=== PATIENT | female | born 1960 | race Caucasian/White ===

== ENCOUNTER 2020-04-23 00:25 | Outpatient (CLI) | payer BC, SELFPAY ==
[2020-04-23 17:33] LABS: SARS-CoV-2 RNA PCR Negative
== END 2020-04-23 00:26 | disposition home or self-care (01) ==
LOC: ANHCOVIDDT 00:25
PROVIDERS: PCP Emergency Medicine; Visit Provider Internal Medicine Gastroenterology
DX: Z01.812 Encounter for preprocedural laboratory examination (principal); Z20.828 Contact with and (suspected) exposure to other viral communicable diseases
CPT/HCPCS: 87635; C9803; U0003

== ENCOUNTER 2020-04-25 01:24 | Day surgery (SDC) | payer BC, SELFPAY ==
[2020-04-16 10:24] VITALS: BMI 39.6
--- NOTE | 2020-04-25 07:24 | WPDANESEPPF ---
Anes - Initial Pre Proc Eval Procedure: Operation Date: 04/25/20 08:30 Proposed Procedures p Screening Colonoscopy - Nuno Olguin MD Date/Time: 04/25/20 07:24 Surgeon: Nuno Olguin MD Pre Op Diagnosis: neoplasm Screening and family hx colon polyp Patient Data Age: 59 Gender: F Height: 5 ft 7 in Weight: 115 kg Allergies Allergy/AdvReac Type Severity Reaction Status Date / Time Penicillins Allergy Unknown Rash Verified 04/16/20 10:21 Home Medications Medication Instructions Recorded Confirmed Type biotin 1 mg PO DAILY 04/16/20 04/16/20 History cholecalciferol (vitamin D3) 10 mcg PO DAILY 04/16/20 04/16/20 History [Vitamin D3] cyanocobalamin (vitamin B-12) 1,000 mcg PO DAILY 04/16/20 04/16/20 History [Vitamin B-12] estradiol 1 mg PO DAILY 04/16/20 04/16/20 History levothyroxine 150 mcg PO DAILY 04/16/20 04/16/20 History medroxyprogesterone 5 mg PO DAILY 04/16/20 04/16/20 History Patient hx anesthesia problems: none Family hx anesthesia problems: none PMFSH Past Medical History Medical History (Updated 04/25/20 @ 07:24 by Raghav Carranza MD) Hypothyroid Family History Family History Sibling Family history of diabetes mellitus in first degree relative Other Cerebrovascular accident Diabetes mellitus Family history of cardiovascular disease Hypertension Social History Social History Smoking status: Never smoker Alcohol intake: current Anes - Eval Final PreProcedure Day of Procedure 04/25/20 07:24 Patient weight: morbidly obese Heart: regular rate and rhythm Lungs: clear to auscultation Airway: Mallampati scale class II Neurological: alert and oriented Last oral intake: >/= 8 hours ASA classification: III Emergent: no Anesthetic plan: proceed Anesthesia type and monitoring: general GIVS and standard monitoring Informed Consent: The patient's anesthetic plan and its attendant risks and benefits were discussed with the patient/family/POA. Questions were solicited and answers provided to the satisfaction of the patient/family/POA.
[2020-04-25 07:41] VITALS: BP 150/102; PULSE 80; RESP 18; TEMP 36.3; O2SAT 100; BMI 38.7
[2020-04-25] MEDS: LACTATED RINGERS 1,000 ML 150 ML IV CONT (07:49)
[2020-04-25 08:00] VITALS: BP 141/76; PULSE 72
--- NOTE | 2020-04-25 08:01 | WPDGICN ---
Assessment and Plan Assessment and plan (1) Family history of colonic polyps: Code(s): Z83.71 - Family history of colonic polyps Status: Acute Assessment and Plan: Patient presents for colonoscopy for screening. She does have a risk factor that her mother had colon polyps. Further recommendations will be given after colonoscopy. GI Consult Note Consult date/time: 04/25/20 08:01 HPI: Catia Franco is a 59 year old female Seen in evaluation at the request of Dr. Abebe Brooke. Patient presents for neoplasia screening. Her current weight appetite bowel movements are normal. She denies abdominal pain. She denies any blood in her stools. Family history is significant her mother had colon polyps. Her brother had unspecified metastatic cancer in his early 60s. Plan is for screening colonoscopy to be performed. High-fiber diet ad Review of Systems Review of Systems: All systems reviewed & are unremarkable except as noted in HPI and below PMFSH Past Medical History Medical History Hypothyroid Family History Family History Sibling Family history of diabetes mellitus in first degree relative Other Cerebrovascular accident Diabetes mellitus Family history of cardiovascular disease Hypertension Social History Social History Smoking status: Never smoker Alcohol intake: current Meds Home Medications and Allergies Home Medications Medication Instructions Recorded Confirmed Type biotin 1 mg PO DAILY 04/16/20 04/25/20 History cholecalciferol (vitamin D3) 10 mcg PO DAILY 04/16/20 04/25/20 History [Vitamin D3] cyanocobalamin (vitamin B-12) 1,000 mcg PO DAILY 04/16/20 04/25/20 History [Vitamin B-12] estradiol 1 mg PO DAILY 04/16/20 04/25/20 History levothyroxine 150 mcg PO DAILY 04/16/20 04/25/20 History medroxyprogesterone 5 mg PO DAILY 04/16/20 04/25/20 History Allergies Allergy/AdvReac Type Severity Reaction Status Date / Time Penicillins Allergy Unknown Rash Verified 04/25/20 07:40 Vital Signs Vital Signs - 24 hr 04/25/20 07:41 04/25/20 08:00 Temperature 36.3 C L Pulse Rate 80 72 Respiratory Rate 18 Blood Pressure 150/102 H 141/76 H Pulse Oximetry 100 Exam Narrative: Exam Narrative: Physical exam reveals patient to be alert. Vital signs are stable. HEENT exam unremarkable. Lungs are clear to auscultation and percussion. Heart is without murmur or extra sounds. Abdominal exam bowel sounds are present soft nontender with no hepatosplenomegaly. Digital external rectal exam is normal.
[2020-04-25 09:03] VITALS: BP 121/72; PULSE 74; RESP 18; O2SAT 100
[2020-04-25 09:13] VITALS: BP 132/76; PULSE 68; RESP 15; O2SAT 100
[2020-04-25 09:23] VITALS: BP 131/95; PULSE 70; RESP 17; O2SAT 100
== END 2020-04-25 09:38 | disposition home or self-care (01) ==
PROVIDERS: PCP Emergency Medicine; Visit Provider Internal Medicine Gastroenterology
PROC: 0DJD8ZZ Inspection of Lower Intestinal Tract, Via Natural or Artificial Opening Endoscopic (ICD-10-PCS; CPT 45378; principal; 2020-04-25 08:30)
DX: Z12.11 Encounter for screening for malignant neoplasm of colon (principal); K57.30 Diverticulosis of large intestine without perforation or abscess without bleeding; K64.8 Other hemorrhoids; Z83.71 Family history of colonic polyps; E03.9 Hypothyroidism, unspecified; E66.01 Morbid (severe) obesity due to excess calories; Z68.38 Body mass index [BMI] 38.0-38.9, adult
CPT/HCPCS: 45378; J2704; J7120

== ENCOUNTER 2020-12-19 15:00 | Outpatient (CLI) | payer BC, SELFPAY ==
--- NOTE | ~2020-12-19 | MM_ITS ---
EXAMINATION: MM screening [facility] w deangelo HISTORY: Screening mammogram TECHNIQUE: Craniocaudal and mediolateral oblique 3-D tomosynthesis images were obtained and synthetic 2-D images were generated. CAD analysis was submitted and interpreted. COMPARISON: 06/01/2018, 02/23/2016, 09/12/2013 BREAST PARENCHYMAL COMPOSITION: The breasts are heterogeneously dense, which may obscure small masses . FINDINGS: There is no evidence of suspicious mass, calcification, or architectural distortion to sugg est malignancy in either breast. There has been no suspicious interval change. IMPRESSION: 1. No mammographic evidence of malignancy. 2. Recommend routine screening mammography in one year. BI-RADS Category 1: Negative Reviewed, dictated and finalized at location A. CAL TRANSCRIPTION EDITOR
== END 2020-12-19 15:01 | disposition home or self-care (01) ==
LOC: ANHIMG 15:04
PROVIDERS: PCP Emergency Medicine; Visit Provider Obstetrics & Gynecology Gynecology
DX: Z12.31 Encounter for screening mammogram for malignant neoplasm of breast (principal)
CPT/HCPCS: 77063; 77067

== ENCOUNTER 2021-01-26 15:06 | Outpatient (CLI) | payer BC, SELFPAY ==
--- NOTE | ~2021-01-26 | DEXA_ITS ---
Bone Density Report Name: Catia Franco Age: 60 Sex: Female Ethnicity: White Date of : 1960 Indication: postmenopausal; parental hip fracture; inflammatory bowel disease; Referring Provider: ALICE MERRILL Study: Bone densitometry was performed. Exam Date: January 26, 2021 Accession number: [id number] Bone Density: Region BMD T-score Z-score Classification AP Spine (L1-L4) 0.914 -1.2 0.1 Osteopenia Femoral Neck (Left) 0.760 -0.8 0.4 Normal Total Hip (Left) 1.016 0.6 1.5 Normal Total Hip Bilateral Avg 0.974 0.3 1.2 Normal Femoral Neck (Right) 0.753 -0.9 0.4 Normal Total Hip (Right) 0.930 -0.1 0.8 Normal World Health Organization criteria for BMD impression classify patients as: Normal (T-score at or above -1.0), Osteopenia (T-score between -1.0 and -2.5), or Osteoporosis (T-score at or below -2.5). 10-year Fracture Risk(1): Major Osteoporotic Fracture 12% Hip Fracture 0.3% Reported Risk Factors: [place] (), Neck BMD=0.753, BMI=40.4, parental fracture (1) FRAX(R) Version 3.08. Fracture probability calculated for an untreated patient. Fracture probability may be lower if the patient has received treatment. Clinical Information Provided by Patient: Parent has had a hip fracture Has used the following medications: HRT (i.e. estrogen/hormone therapy), Vitamin D Has the following medical conditions: Inflammatory bowel diseases Patient maximum height was 67 Menopause Age: 59 No regular weight bearing exercise Does not regularly consume dairy products Drinks caffeinated beverages Onset of menses at age 13 Number of children 2 Impression: The patient has low bone mass, based on the Total Spine T-score. The patient has an estimated ten-year risk of hip fracture of 0.3% and an estimated ten-year risk of major fracture of 12%, based on the WHO FRAX algorithm. The patient has risk factors, including: parental hip fracture. Discussion: BONE DENSITY IS LOW AT ONE OR MORE SKELETAL SITES. This patient's lowest T-score is low at one or more skeletal sites. It meets the World Health Organization's (WHO) criteria for ?low bone mass? (T-score between -1.0 and -2.5). The patient's 10-year risk of fracture as calculated by FRAX is less than the threshold where pharmacological therapy is recommended by the National Osteoporosis Foundation (NOF). However, all treatment decisions require clinical judgment and consideration of individual patient factors, including patient preferences, comorbidities, previous drug use, risk factors not captured in the FRAX model (e.g., frailty, falls, vitamin D deficiency, increased bone turnover, interval significant decline in bone density) and possible under or overestimation of fracture risk by FRAX. The patient should follow a healthful lifestyle (good nutrition wi
== END 2021-01-26 15:07 | disposition home or self-care (01) ==
LOC: ANHIMG 15:07
PROVIDERS: PCP Emergency Medicine; Visit Provider Obstetrics & Gynecology Gynecology
DX: Z78.0 Asymptomatic menopausal state (principal); M85.88 Other specified disorders of bone density and structure, other site
CPT/HCPCS: 77080

== ENCOUNTER 2024-08-07 11:49 | Outpatient (CLI) | payer BC, SELFPAY ==
--- NOTE | ~2024-08-07 | MM_ITS ---
EXAMINATION: MM screening [facility] BI w deangelo HISTORY: Screening TECHNIQUE: Craniocaudal and mediolateral oblique 3-D tomosynthesis images were obtained and synthetic 2-D images were generated. CAD analysis was submitted and interpreted. COMPARISON: Comparison to multiple prior studies sequentially, with oldest reviewed study dated 02/22. BREAST PARENCHYMAL COMPOSITION: Not dense: There are scattered areas of fibroglandular density. FINDINGS: There is no evidence of suspicious mass, calcification, or architectural distortion to sugg est malignancy in either breast. There has been no suspicious interval change. IMPRESSION: 1. No mammographic evidence of malignancy. 2. Recommend routine screening mammography in one year. BI-RADS Category 1: Negative Reviewed, dictated and finalized at location B.
--- NOTE | ~2024-08-07 | DEXA_ITS ---
Bone Density Report Name: ADELAIDE ALVARENGA Age: 63 Sex: Female Ethnicity: White Date of : 1960 Indication: screening for osteoporosis; inflammatory bowel disease; Referring Provider: Ada Key Study: Bone densitometry was performed. Exam Date: August 07, 2024 Accession number: [id number] Bone Density: Region BMD T-score Z-score Classification AP Spine(L1-L4) 1.024 -0.2 1.4 Normal Femoral Neck (Left) 0.764 -0.8 0.6 Normal Total Hip (Left) 1.018 0.6 1.7 Normal Femoral Neck (Right) 0.734 -1.0 0.4 Normal Total Hip (Right) 0.890 -0.4 0.7 Normal Femoral Neck Mean 0.749 -0.9 0.5 Normal Total Hip Mean 0.954 0.1 1.2 Normal World Health Organization criteria for BMD impression classify patients as: Normal (T-score at or above -1.0), Osteopenia (T-score between -1.0 and -2.5), or Osteoporosis (T-score at or below -2.5). 10-year Fracture Risk: FRAX not reported because: Premenopausal woman All T-scores for Spine Total, Hip Total, Femoral Neck at or above -1.0 Clinical Information Provided by Patient: Has used the following medications: HRT (i.e. estrogen/hormone therapy), Vitamin D, Calcium Has the following medical conditions: Inflammatory bowel diseases, Hypothyroidism Patient maximum height was 67.5 Drinks caffeinated beverages Onset of menses at age 12 Premenopausal Number of children 2 Missed period for more than 6 months in a row Impression: The patient's bone mass is within expected range for age, gender and ethnicity. Discussion: BONE DENSITY IS WITHIN EXPECTED LIMITS FOR AGE, SEX AND RACE. Bone density is within expected limits for age, sex and race at all sites measured. The patient should follow a healthful lifestyle (good nutrition with adequate calcium and vitamin D, and appropriate weight-bearing exercise). Follow-Up: Consider repeating this study in 5 years or sooner if there is some new clinical indication. Reported by: KIRTI on 08/07/2024 4:11:00 PM. Reviewed, dictated and finalized at location ASally JONES
== END 2024-08-07 11:50 | disposition home or self-care (01) ==
LOC: CHSIMG 11:57
PROVIDERS: PCP Family Medicine; Visit Provider Obstetrics & Gynecology Gynecology
DX: Z12.31 Encounter for screening mammogram for malignant neoplasm of breast (principal); Z78.0 Asymptomatic menopausal state
CPT/HCPCS: 77063; 77067; 77080

== ENCOUNTER 2025-02-11 01:42 | Day surgery (SDC) | payer BC, SELFPAY ==
[2025-01-31 16:17] VITALS: BMI 38.0
--- NOTE | 2025-02-08 19:04 | P.PNAN_ITS ---
Anes - Eval Pre Procedure Procedure: Operation Date: 02/11/25 08:00 Proposed Procedures p Colonoscopy - Brennan Florence MD Date/Time: 02/08/25 19:04 Pre Op Diagnosis: family hx of neoplasm polyps Patient Data Age: 64 Gender: F Height: 1.7 m Weight: 110 kg Allergies Allergy/AdvReac Type Severity Reaction Status Date / Time Penicillins Allergy Unknown Rash Verified 01/31/25 16:12 ADHESIVE BANDAIDS Allergy Intermediate RASH Uncoded 01/31/25 16:12 Home Medications ?Medication ?Instructions ?Recorded ?Confirmed ?Type biotin 1 mg capsule 1 mg PO DAILY 04/16/20 01/31/25 History cholecalciferol (vitamin D3) 10 10 mcg PO DAILY 04/16/20 01/31/25 History mcg (400 unit) tablet (Vitamin D3) cyanocobalamin (vitamin B-12) 1,000 mcg PO DAILY 04/16/20 01/31/25 History 1,000 mcg tablet (Vitamin B-12) estradiol 1 mg tablet 1 mg PO DAILY 04/16/20 01/31/25 History levothyroxine 150 mcg tablet 150 mcg PO DAILY 04/16/20 01/31/25 History WOMANS VITAMIN 1 tablet PO DAILY 01/31/25 01/31/25 History ondansetron HCl 4 mg tablet 4 mg PO Q6H PRN nausea and 01/31/25 Rx vomiting #4 tabs progesterone micronized 200 mg 200 mg PO DAILY 01/31/25 01/31/25 History capsule Patient hx anesthesia problems: none Family hx anesthesia problems: none Results Review: All pre-operative results and documents have been reviewed as part of the pre- operative evaluation. [facility] Past Medical History Medical History (Updated 02/08/25 @ 19:11 by Windy Mai CRNA) Obesity Hypothyroid Family History Family History Sibling Family history of diabetes mellitus in first degree relative Other Cerebrovascular accident Diabetes mellitus Family history of cardiovascular disease Hypertension Social History Social History Smoking status: Never smoker Alcohol intake: current Substance use: never Substance use type: does not use Living arrangements: with family Spiritual care concerns: No Exam Day of Procedure 02/08/25 19:04
--- OUTSIDE RECORDS SUMMARY | 2025-02-11 01:44 | XMS_ITS | Encounter Summary ---
Author Organization [facility] Address [address] [place] [id number] Care Team Providers Care Flower Shop Laborer/Designer Name Role Phone Ada Key MD Unavailable [phone] Nuno Olguin MD Unavailable [phone] Khalida Egan MD Primary Care Provider [phone] Reason for Visit * Reason Onset Date Comments Lab Results 06/16/2022 Encounter Details Date Type Department Care Team (Late st Contact Info) Description 06/16/2022 Deenty Message Enc [facility] Family & Internal Medicine [address] [address] [facility] Provider Results Social History Tobacco Use Types Packs/Day Years Used Date Smoking Tobacco: Never Smokeless Tobacco: Never Alcohol Use Standard Drinks/Week Comments Yes 0 (1 standard drink = 0.6 oz pur e alcohol) social 1drink/6 months AUDIT-C Answer Date Recorded Q1: How often do you have a drink containing alc ohol? Monthly or less 03/26/2020 Average Number of Drinks Not on file 020 Frequency of Binge Drinking Not on file 03/14 PHQ-2 Answer Date Recorded PHQ-2 Score - If the patient scores above 3, please move on to questions 3-9 0 05/10/2022 Education Answer Date Recorded What is the highest level of school you have completed or the highest degree you have received? High school graduate 12/22/2018 Comments No Sex and Gender Information Value Date Recorded Sex Assigned at Female 03/26/2020 3:08 PM CDT Legal Sex Female 9:25 PM CDT Gender Identity Female 03/26/2020 3:08 PM CDT Sexual Orientation Straight 03/26/2020 3: 08 PM CDT Occupation Industry Job Start Date Job End Date Not on file Not on file Not on file Not on file documented as of this encounter Functional Status * RETIRED Are you deaf or do you have serious difficulty hearing Answer Date of Assessment Author Status No 11/21/2021 11:09 AM CIS COORDINATOR Acti ve * RETIRED Are you blind or do you have serious difficulty seeing, even when wearing glasses? Answer Date of Assessment Author Status No 11/21/2021 11:09 AM CIS COORDINATOR Acti ve * Do you have serious difficulty walking or climbing stairs? Answer Date of Assessment Author Status No 11/21/2021 11:09 AM Rosie Evangelista R N Active * Do you have difficulty dressing or bathing? Answer Date of Assessment Author Status No 11/21/2021 11:09 AM Rosie Evangelista R N Active * Because of a physical, mental, or emotional condition, do you have difficulty doing errands alone such as visiting a doctor's office or shopping? Answer Date of Assessment Author Status No 11/21/2021 11:09 AM Rosie Evangelista R N Active documented as of this encounter Mental Status * Because of a physical, mental, or emotional condition, do you have serious difficulty concentrating, remembering, or making decisions? Answer Entry Date Author Status No 11/21/2021 11:09 AM Rosie Evangelista R N Active documented in this encounter Progress Notes * Sho Garcia RN - 06/21/2022 11:22 AM CDT Noted. * Faiza Chavis - 06/16/2022 2:48 PM CDT Pt returned your call I read her your note v/u documented in this encounter Plan of Treatment Upcoming Encounters Date Type Department Care Team (Late st Contact Info) Description 02/27/2025 3:20 PM CDT Office Visit [facility] Family & Internal Medicine - [place] [address] [place] [address] [place] [id number] [facility]. [address] [place] [id number] documented as of this encounter Goals Goal Patient Goal Type Associated Problems Recent Progress Patient-Stated? Author Health - patient able to perform ADLs independently General Piedad Almeida RN documented as of this encounter Visit Diagnoses Not on filedocumented in this encounter Additional Health Concerns Infection Onset Date Last Indicated Resolved Time COVID-19 Rule Out 11/22/2023 11/22/2023 11/22/2023 11:17 AM CIS COORDINATOR COVID-19 Rule Out 06/28/2024 06/28/2024 06/28/2024 11:11 AM CDT COVID-19 Confirmed 06/28/2024 06/28/2024 12:32 AM CDT documented as of this encounter Care Teams Flower Shop Laborer/Designer Relationship Specialty [place] [id number] [facility]. [address] [place] [id number] PCP - General FAMILY PRACTICE 05/10/22 Ada Key MD [address]22 [facility] [address] [place] [address] Consulting Physician OBGYN 03/23/21 Nuno Olguin MD 2022 [facility] [address] [place] [id number] Consulting Physician GASTROENTEROLOGY 03/23/21 documented as of this encounter
--- OUTSIDE RECORDS SUMMARY | 2025-02-11 01:44 | XMS_ITS | Clinical Summary ---
Author Organization [facility] Address [address] [place] [address] Care Team Providers Care Inspector Rough Castings Name Role Phone Ada Key MD Unavailable [phone] Nuno Olguin MD Unavailable [phone] Khalida Egan MD Primary Care Provider [phone] Allergies Active Allergy Reactions Criticality Noted Date Comments Penicillins GI Upset,Diarrhea 07/29/2015 Tape Rash Low 08/23/2017 Medications estradiol 1 MG tablet Take 1 tablet (1 mg total) by mouth daily. 7 Active Multiple Vitamins-Flexboard Operator als (MULTIVITAMIN ADULT, MINERALS, OR) Take 1 capsule by mouth daily. Active vitamin D3, cholecalcifero l, (VITAMIN D) 1000 UNIT Tab tabletIndicati ons:Vitamin D deficiency Take 1 tablet (1,000 Units total) by mouth daily. 90 tablet 2 Active medroxyPROGEST ERone (PROVERA) 5 MG tablet Take 1 tablet (5 mg total) by mouth daily. 3 Active levothyroxine (SYNTHROID) 150 MCG tabletIndicati ons:Hypothyroi dism take 1 tablet by mouth every morning. 90 tablet 1 4 Active zoster vaccine (SHINGRIX) (SHINGRIX) injectionIndic ations:Need for shingles vaccine Need 2 doses 2 -6 months apart 1 each 1 4 Active Additional Information Patient not taking.Reported on 01/02/2025 progesterone (PROMETRIUM) 100 MG capsule Take 1 capsule (100 mg total) by mouth nightly at bedtime. 4 Active meclizine 12.5 MG tabletIndicati ons:Dizziness Take 1 tablet (12.5 mg total) by mouth 3 (three) times daily as needed. 30 tablet 9 019 Discontinu ed( (Clinician Removed from Med list)) doxycycline hyclate (VIBRAMYCIN) 100 MG capsuleIndicat ions:Sore throat,Bronchi tis Take 1 capsule (100 mg total) by mouth 2 (two) times daily for 10 days. 20 capsule 5 025 Active Problems Problem Noted Date Diagnosed Date Hx of diverticulitis of colon 04/26/2024 Stress incontinence 04/26/2024 White coat syndrome without hypertension 023 Upper respiratory tract infection, unspecified t ype 02/03/2023 Sore throat 02/03/2023 Pneumonia 11/19/2021 Primary hypertension 12/21/2017 Assessment & Plan (03/30/2019 9:39 AM CDT): Patient with a history of mild hypertension, based on recordings in our office over the past 3 years, with a high in the 130s systolically. Currently she is within target range, not on any medications. We will continue to monitor, but no medications are indicated at this time. She was previously on clonidine but that was more for an anti-anxiety effect. Obesity (BMI 30-39.9) 04/22/2017 Overview (12/22/2018): Transitioned From: BMI 39.0-39.9,adult Assessment & Plan (03/30/2019 9:42 AM CDT): Encouraged continued healthy dietary selections, as well as daily exercise. Pure hypertriglyceridemia 04/22/2017 Assessment & Plan (03/30/2019 9:40 AM CDT): Single previous lipid panel obtained in 2014, with mildly elevated LDL and triglycerides. Repeat today, as patient is fasting. No medications at this time, and if unchanged from previous, likely would recommend continued dietary therapy only. Medication management 02/06/2016 Overview (12/22/2018): Transitioned From: intermodal customer service use of drug Assessment & Plan (03/30/2019 9:42 AM CDT): Checking routine labs today (see orders) for ongoing medication monitoring. Acquired hypothyroidism 07/29/2015 Assessment & Plan (03/30/2019 9:41 AM CDT): Check TSH today and adjust medication as indicated. Renew for the next year. Resolved Problems Problem Noted Date Diagnosed Date Resolved Date Longitudinal nail ridge 08/07/201803/14 Bipolar disorder ([facility]) 12/30/2017 03/26/2020 Assessment & Plan (03/30/2019 9:42 AM CDT): Stable, continues to follow with Dr. Martinez. No treatment change. . Generalized anxiety disorder 12/21/2017 03/23/2021 Assessment & Plan (03/30/2019 9:43 AM CDT): Stable, management per Dr. Martinez's office. Hot flash, menopausal 07/29/20152020 Encounters Date Type Department Care Team Description 01/02/2025 11:20 AM CARDIAC REHAB NURSE Office Visit [facility] Family & Internal Medicine [address] [address] Jaqui Conway PA Cough (Runny nose, sorethroat-x 5 orsn-cmqagovlmi-dycqa nasal drainage-left ear hurting) 01/02/2025 Travel from Last 3 Months Immunizations Name Administration Dates Next Due Influenza Adult (Generic) 09/12/2017 Family History Medical History Relation Comments Cancer Brother Stage 4 Hypertension Father Heart Mother Hypertension Mother polyps Mother Relation Status Comments Brother Father Mother Alive Social History Tobacco Use Types Packs/Day Years Used Date Smoking Tobacco: Never Passive Smoke Exposure: Never Smokeless Tobacco: Never Tobacco Cessation:Counseling Given: No Alcohol Use Standard Drinks/Week Comments Yes 0 (1 standard drink = 0.6 oz pur e alcohol) social 1drink/6 months AUDIT-C Answer Date Recorded Q1: How often do you have a drink containing alc ohol? Monthly or less 03/26/2020 Average Number of Drinks Not on file 020 Frequency of Binge Drinking Not on file 03/14 PHQ-2 Answer Date Recorded Patient Health Questionnaire-2 Score 0 02/29/2024 Education Answer Date Recorded What is the [...] file Not on file Not on file Last Filed Vital Signs Vital Sign Reading Time Taken Comments Blood Pressure 148/80 01/02/2025 11:47 AM CARDIAC REHAB NURSE taken manually Pulse 74 01/02/2025 11:44 AM CARDIAC REHAB NURSE Temperature 37 C (98.6 F) 01/02/2025 11:44 AM CARDIAC REHAB NURSE Respiratory Rate 20 01/02/2025 11:4 4 AM CARDIAC REHAB NURSE Oxygen Saturation 99% 01/02/2025 11: 44 AM CARDIAC REHAB NURSE Inhaled Oxygen Concentration - - Weight 111.8 kg (246 lb 6.4 oz) 01/02/2025 11:44 AM CARDIAC REHAB NURSE Height 170.2 cm (5' 7 ) 01/02/2025 11:4 4 AM CARDIAC REHAB NURSE Body Mass Index 38.59 01/02/2025 11:44 AM CARDIAC REHAB NURSE Plan of Treatment Upcoming Encounters Date Type Department Care Team (Late st Contact Info) Description 02/27/2025 3:20 PM CDT Office Visit [facility] Family & Internal Medicine [facility] [address] [place] [address] Khalida [place] [id number] [place] [address]. [address] [place] [address] Health Maintenance Due Date Last Done Comments Cervical Cancer Screening Pa p Smear (Age 30 to 64) Every 3 Years 1961 Hepatitis C 1979 DTaP, Tdap and Td Vaccines ( 1 - Tdap) 1980 Cervical Cancer Screening Pa p with HPV Testing (Age 30 to 64) Every 5 Years 1991 Zoster Vaccines (1 of 2) 2011 Annual Physical 03/23/2022 03/23/2021 COVID-19 Vaccine (1 - 2023-2 5 season) 2024 PHQ-2 (Physician Quechan) 11/14/2024 02/29/2024 Mammogram Screening 08/07/2026 08/07/2024, 06/01/2018 Cervical Cancer Screening with HPV 08/19/2026 Postponed from 12/20 (Going to Outside Clinic) Colorectal Cancer Screening Colonoscopy (10 Years) 04/25/2030 04/25/2020 RSV Immunization or 60+ Years (1 - 1-dose 75+ series) 2036 Meningococcal B Vaccine Aged Out No l onger eligible based on patient's age to complete this topic Meningococcal Vaccine Aged Out No bo libby eligible based on patient's age to complete this topic Pneumococcal Vaccine: Pediatrics (0 to 5 Years) and At-Risk Patients (6 to 64 Years) Aged Out No longer eligible b ased on patient's age to complete this topic RSV Immunizations Under 20 Months Aged Out No longer eligible b ased on patient's age to complete this topic Goals Goal Patient Goal Type Associated Problems Recent Progress Patient-Stated? Author Health - patient able to perform ADLs independently General No Piedad Cantu dining chair seat cushion trimmer Procedure Name Priority Date/Time Associated Diagnosis Comments CULTURE STREP A Routine 01/02/2025 12:01 PM CARDIAC REHAB NURSE Sore throat STREP A RAPID Routine 01/02/2025 Sore throat MAMMOGRAM GENERIC (SCAN ORDER) 08/07/2024 COLONOSCOPY GENERIC (SCAN ORDER) 04/25/2020 from Last 3 Months or Most Recently Relevant to Health Maintenance Results * CULTURE STREP A (01/02/2025 12:01 PM CARDIAC REHAB NURSE) THROAT CULTURE GROUP A STREP [facility] [place] Comment: CULTURE, THROAT, SPECIAL W/GRP A STREP SUSCEPT. Micro Number: [id number] Test Status: Final Specimen Source: Not given Specimen Quality: Adequate Result: No oropharyngeal pathogens recovered. STRUCTURE OF ANTERIOR PORTION OF NECK / Unknown 01/02/2025 12:01 PM CARDIAC REHAB NURSE 01/03/2025 12:52 AM CARDIAC REHAB NURSE Narrative Resulting Agency Comment Performing Organization Information: Site ID: Name: [facility] Address: [address] [place] [address] Director: Colleen Jimenez Jaqui EM MICROBIOLOGY - GENERAL ORDER [place] Final Result [facility] [address] [address], * STREP A RAPID (01/02/2025) RAPID STREP TEST NEGATIVE NEGATIVE [id number], [place] Internal Control: VALID VALID [id number], [place] STRUCTURE OF ANTERIOR PORTION OF NECK / Unknown 01/02/2025 Jaqui EM MICROBIOLOGY - GENERAL ORDER [place] Final Result Performing Organization Address [facility] Co de Phone Number [phone] [address] [place] [address], [place] [phone] * MAMMOGRAM GENERIC (SCAN ORDER) (08/07/2024) Anatomical Region Laterality Modality Other 08/07/2024 [facility] Scanned SCANNING Final Resu lt * COLONOSCOPY GENERIC (04/25/2020) 04/25/2020 Narrative 04/25/2020 Ordered by an unspecified provider. us Documents Scanned SCANNING Final Result from Last 3 Months or Most Recently Relevant to Health Maintenance Insurance [facility] Advance Directives * Full Code (Latest Code Status on File) Date Activated Date Inactivated Comments 11/20/2021 10:37 AM 11/21/2021 4:06 PM Care Teams Inspector Rough Castings Relationship Specialty [place] [address] [facility] [address] [place] [address] PCP - General FAMILY PRACTICE 05/10/22 Ada Key MD [address] [facility] [address] [place] [address] Consulting Physician OBGYN 03/23/21 Nuno Olguin MD [address] [facility] [address] [place] [address] Consulting Physician GASTROENTEROLOGY 03/23/21
--- OUTSIDE RECORDS SUMMARY | 2025-02-11 01:44 | XMS_ITS | Encounter Summary ---
Author Organization [facility] Address [address] [place] [address] Care Team Providers Care Log Turner Name Role Phone Ada Key MD Unavailable [phone] Nuno Olguin MD Unavailable [phone] Khalida Egan MD Primary Care Provider [phone] Encounter Details Date Type Department Care Team (Late st Contact Info) Description 10/21/2022 [employer] [facility] Message Enc [facility] Family & Internal Medicine [address] [address] [facility] Provider results Social History Tobacco Use Types Packs/Day Years [...] file Not on file Not on file COVID-19 Exposure Response Date Recorded In the last 10 days, have yo u been in contact with someone who was confirmed or suspected to have Coronavirus/COVID-19? No / Unsure 10/19/2022 8:56 AM BI TRI OPERATOR documented as of this encounter Functional Status * RETIRED Are you deaf or do you have serious difficulty hearing Answer Date of Assessment Author Status No 11/21/2021 11:09 AM BI TRI OPERATOR Acti ve * RETIRED Are you blind or do you have serious difficulty seeing, even when wearing glasses? Answer Date of Assessment Author Status No 11/21/2021 11:09 AM BI TRI OPERATOR Acti ve * Do you have serious difficulty walking or climbing stairs? Answer Date of Assessment Author Status No 11/21/2021 11:09 AM BI TRI OPERATOR Rosie Joyce R N Active * Do you have difficulty dressing or bathing? Answer Date of Assessment Author Status No 11/21/2021 11:09 AM BI TRI OPERATOR Rosie Joyce R N Active * Because of a physical, mental, or emotional condition, do you have difficulty doing errands alone such as visiting a doctor's office or shopping? Answer Date of Assessment Author Status No 11/21/2021 11:09 AM BI TRI OPERATOR Rosie Joyce R N Active documented as of this encounter Mental Status * Because of a physical, mental, or emotional condition, do you have serious difficulty concentrating, remembering, or making decisions? Answer Entry Date Author Status No 11/21/2021 11:09 AM BI TRI OPERATOR Rosie Joyce R N Active documented in this encounter Plan of Treatment Upcoming Encounters Date Type Department Care Team (Late st Contact Info) Description 02/27/2025 3:20 PM CDT Office Visit [facility] Family & Internal Medicine [address] [address] Khalida Egan MD [address] [place] [address]. [address] [place] [address] documented as of this encounter Goals Goal Patient Goal Type Associated Problems Recent Progress Patient-Stated? Author Health - patient able to perform ADLs independently General No Piedad Cantu, RN documented as of this encounter Visit Diagnoses Not on filedocumented in this encounter Additional Health Concerns Infection Onset Date Last Indicated Resolved Time COVID-19 Rule Out 11/22/2023 11/22/2023 11/22/2023 11:17 AM BI TRI OPERATOR COVID-19 Rule Out 06/28/2024 06/28/2024 06/28/2024 11:11 AM CDT COVID-19 Confirmed 06/28/2024 06/28/2024 12:32 AM CDT documented as of this encounter Care Teams Log Turner Relationship Specialty Start [place] [address] [facility]. [address] [place] [address] PCP - General FAMILY PRACTICE 05/10/22 Ada Key MD [address] [facility] [address] [place] [address] Consulting Physician OBGYN 03/23/21 Nuno Olguin MD [address] [address] [place] [address] Consulting Physician GASTROENTEROLOGY 03/23/21 documented as of this encounter
--- OUTSIDE RECORDS SUMMARY | 2025-02-11 01:44 | XMS_ITS | Continuity of Care Document ---
Author Organization [facility] Address [address] [place] [address] [place] [address] Phone Care Team Providers Care Office Machinery Or Equipment Installer Name Role Phone Randal Rios MD Unavailable Unavailable Procedures Procedure Date Office Consultation Advance Directives Directive Yes / No Effective Date File Name No Information Encounters Encounter Description Practice Location Reason(s) For Visit Diagnoses Date Provider Providers Copied on Encounter Office Consultation [facility], [address], [place], [place], [id number], [place] tel:[phone] [facility] Professional No Information [address] [facility] [address], [place], [place], [id number], [place]. tel:[phone] Referring Provider: Doron Hughes, [address] [facility], [place], [address]. tel:[phone] Family History Family Member Type Diagnosis Age At Onset No Information Payers Payer name Insurance type Covered libertarian ID Authoriza tion(s) No Information Social History Type Description Quantity Date Captured Comments Sex Female Smoking Status No Information Chief Complaint And Reason For Visit No Information Reason For Referral Reason For Referral No Information History Of Present Illness Encounter Date Complaint History Of Prese nt Illness No Information Functional Status Date Functional Assessmen t No Information Instructions Date Instruction Additional Infor mation No Information Assessments Type Assessment Date No Information Patient Care Teams Name Effective Dates (start - stop) Status Members No Information
[2025-02-11 07:21] VITALS: BP 175/84; PULSE 73; RESP 20; TEMP 35.8; O2SAT 99; BMI 37.9
[2025-02-11] MEDS: LACTATED RINGERS 1,000 ML 150 ML IV CONT (07:34)
--- NOTE | 2025-02-11 07:59 | P.PNAN_ITS ---
Anes - Initial Pre Proc Eval Procedure: Operation Date: 02/11/25 08:00 Proposed Procedures p Colonoscopy - Brennan Florence MD Date/Time: 02/11/25 07:59 Surgeon: Brennan Florence MD Pre Op Diagnosis: family hx of colon cancer Patient Data Age: 64 Gender: F Height: 1.7 m Weight: 109.9 kg Last Vital Signs Temp 96.4 F L 02/11/25 07:21 Pulse 73 02/11/25 07:21 Resp 20 02/11/25 07:21 BP 175/84 H 02/11/25 07:21 Pulse Ox 99 02/11/25 07:21 O2 Del Method Room Air 02/11/25 07:21 Allergies Allergy/AdvReac Type Severity Reaction Status Date / Time Penicillins Allergy Unknown Rash Verified 02/11/25 07:20 ADHESIVE BANDAIDS Allergy Intermediate RASH Uncoded 02/11/25 07:20 Home Medications ?Medication ?Instructions ?Recorded ?Confirmed ?Type biotin 1 mg capsule 1 mg PO DAILY 04/16/20 02/11/25 History cholecalciferol (vitamin D3) 10 10 mcg PO DAILY 04/16/20 02/11/25 History mcg (400 unit) tablet (Vitamin D3) cyanocobalamin (vitamin B-12) 1,000 mcg PO DAILY 04/16/20 02/11/25 History 1,000 mcg tablet (Vitamin B-12) estradiol 1 mg tablet 1 mg PO DAILY 04/16/20 02/11/25 History levothyroxine 150 mcg tablet 150 mcg PO DAILY 04/16/20 02/11/25 History WOMANS VITAMIN 1 tablet PO DAILY 01/31/25 02/11/25 History ondansetron HCl 4 mg tablet 4 mg PO Q6H PRN nausea and 01/31/25 Rx vomiting #4 tabs progesterone micronized 200 mg 200 mg PO DAILY 01/31/25 02/11/25 History capsule Patient hx anesthesia problems: none Family hx anesthesia problems: none Results Review: All pre-operative results and documents have been reviewed as part of the pre- operative evaluation. [facility] Past Medical History Medical History Obesity Hypothyroid Family History Family History Sibling Family history of diabetes mellitus in first degree relative Other Cerebrovascular accident Diabetes mellitus Family history of cardiovascular disease Hypertension Social History Social History Smoking status: Never smoker Alcohol intake: current Substance use: never Substance use type: does not use Living arrangements: with family Spiritual care concerns: No Anes - Eval Final PreProcedure Day of Procedure 02/11/25 07:59 Patient weight: normal and morbidly obese Lungs: normal air movement Airway: Mallampati scale class II Neurological: alert and oriented Last oral intake: >/= 8 hours ASA classification: II Emergent: no Anesthetic plan: proceed Anesthesia type and monitoring: general GIVS and standard monitoring Results Review: All pre-operative results and documents have been reviewed as part of the pre- operative evaluation. Obesity, hypothyroidism, pt can walk 1-2 fos w some dyspnea w 2 fos, no cp. Informed Consent: The patient's anesthetic plan and its attendant risks and benefits were discussed with the patient/family/POA. Questions were solicited and answers provided to the satisfaction of the patient/family/POA.
--- NOTE | 2025-02-11 08:01 | PM.HPGS ---
History of Present Illness History of Present Illness Consent: Risks, benefits, and alternatives have been discussed and questions answered. Patient agrees to proceed with procedure. Chief complaint: family hx of colon cancer Narrative: Catia Franco is a 64 year old female with last colonoscopy 2019, brother had colon cancer Review of Systems Review of Systems: All systems reviewed & are unremarkable except as noted in HPI and below PMFSH Past Medical History Medical History (Updated 02/11/25 @ 08:02 by Brennan Florence MD) Family history of colon cancer Obesity Hypothyroid Family History Family History Sibling Family history of diabetes mellitus in first degree relative Other Cerebrovascular accident Diabetes mellitus Family history of cardiovascular disease Hypertension Social History Social History Smoking status: Never smoker Alcohol intake: current Substance use: never Substance use type: does not use Living arrangements: with family Spiritual care concerns: No Meds Home Medications and Allergies Home Medications ?Medication ?Instructions ?Recorded ?Confirmed ?Type biotin 1 mg capsule 1 mg PO DAILY 04/16/20 02/11/25 History cholecalciferol (vitamin D3) 10 10 mcg PO DAILY 04/16/20 02/11/25 History mcg (400 unit) tablet (Vitamin D3) cyanocobalamin (vitamin B-12) 1,000 mcg PO DAILY 04/16/20 02/11/25 History 1,000 mcg tablet (Vitamin B-12) estradiol 1 mg tablet 1 mg PO DAILY 04/16/20 02/11/25 History levothyroxine 150 mcg tablet 150 mcg PO DAILY 04/16/20 02/11/25 History WOMANS VITAMIN 1 tablet PO DAILY 01/31/25 02/11/25 History ondansetron HCl 4 mg tablet 4 mg PO Q6H PRN nausea and 01/31/25 Rx vomiting #4 tabs progesterone micronized 200 mg 200 mg PO DAILY 01/31/25 02/11/25 History capsule Allergies Allergy/AdvReac Type Severity Reaction Status Date / Time Penicillins Allergy Unknown Rash Verified 02/11/25 07:20 ADHESIVE BANDAIDS Allergy Intermediate RASH Uncoded 02/11/25 07:20 Vital Signs Vital Signs - 24 hr 02/11/25 07:21 Temperature 96.4 F L Pulse Rate 73 Respiratory Rate 20 Blood Pressure 175/84 H Pulse Oximetry 99 Oxygen Delivery Room Air Exam Const: General: comfortable and no acute distress HENMT: Face/Nose/Sinus: Normal nares present Eyes: General: appearance normal, both eyes and all related structures Neck: Neck: no JVD Resp: Auscultation: clear to auscultation bilaterally Cardio: Rate: regular rate Rhythm: regular rhythm GI: Inspection: non-distended GI Palp: Yes Soft to palpation Skin: General skin exam: normal color Neuro: Speech: normal speech Extrem: General: normal to inspection Psych: Mental Status: mental status grossly normal Assessment and Plan Assessment and plan (1) Family history of colon cancer: Code(s): Z80.0 - Family history of malignant neoplasm of digestive organs Status: Acute Assessment and Plan: colonoscopy
[2025-02-11 08:19] VITALS: BP 116/60; PULSE 68; RESP 19; O2SAT 100
[2025-02-11 08:29] VITALS: BP 131/64; PULSE 62; RESP 15; O2SAT 100
[2025-02-11 08:39] VITALS: BP 133/62; PULSE 61; RESP 14; O2SAT 100
== END 2025-02-11 08:52 | disposition home or self-care (01) ==
PROVIDERS: PCP Family Medicine; Referring Provider Obstetrics & Gynecology Gynecology; Visit Provider Internal Medicine Gastroenterology
PROC: 0DJD8ZZ Inspection of Lower Intestinal Tract, Via Natural or Artificial Opening Endoscopic (ICD-10-PCS; CPT 45378; principal; 2025-02-11 08:00)
DX: Z12.11 Encounter for screening for malignant neoplasm of colon (principal); K64.8 Other hemorrhoids; K57.30 Diverticulosis of large intestine without perforation or abscess without bleeding; E03.9 Hypothyroidism, unspecified; E66.01 Morbid (severe) obesity due to excess calories; Z68.37 Body mass index [BMI] 37.0-37.9, adult; Z86.0100 Personal history of colon polyps, unspecified; Z80.0 Family history of malignant neoplasm of digestive organs; Z82.49 Family history of ischemic heart disease and other diseases of the circulatory system
CPT/HCPCS: 45378; J2003; J2704; J7120